=== PATIENT | female | born 1960 | race Caucasian/White ===

== ENCOUNTER 2017-02-16 10:58 | Emergency (ER) | payer BC ==
[~2017-02-16] VITALS: Ht 154.9 cm; Wt 85.7 kg
[~2017-02-16 10:58] MED LIST: ALBUTEROL SULF8.5 GM IH; BACTRIM,SEPT1 TABLET PO; BENTYL10 MG PO; CIPRO500 MG PO; EFFEXOR75 MG PO; LASIX20 MG PO; MECLIZINE HCL12.5 M2 PO; METRONIDAZOLE500 MG PO; MOTRIN800 MG PO; PERCOCET 5/31 TABLET PO; PROMETHAZINE HC25 M1 PO; PROMETHAZINE12.5 M1 PO; RITALIN10 MG PO; RITALIN5 MG PO; TAMIFLU75 MG PO; TORADOL10 MG PO; VENLAFAXINE H37.5 MG; XANAX0.5 MG PO; ZOFRAN ODT4 MG PO; ZOFRAN4 MG PO
[2017-02-16 13:32] LABS: HEMATOCRIT 40.1 % (36.0-46.0); MCH 29.8 PG (29.0-34.0); MCHC 33.2 G/DL (30.0-36.0); MCV 89.9 FL (83-99); MEAN PLAT.VOLUME 9.9 uM^3 (9.5-12.4); PLATELET COUNT 321 K/uL (156-360); RBC DIS.WIDTH-SD 39.4 % (39-53); RED BLOOD COUNT 4.46 M/uL (3.80-5.20); WHITE BLOOD COUNT 9.4 K/uL (4.1-10.2)
[2017-02-16 14:12] LABS: ANION GAP 9 MEQ/L (2-14); CHLORIDE 105 MEQ/L (99-109); POTASSIUM 4.2 MEQ/L (3.7-5.4); SAMPLE HEMOLYSIS CHECK 0; SAMPLE ICTERIC CHECK 0; SAMPLE LIPEMIA CHECK 0; SODIUM 141 MEQ/L (136-147)
[2017-02-16 14:14] LABS: TOTAL BILIRUBIN 0.3 MG/DL (0.0-1.0)
[2017-02-16 14:18] LABS: ALKALINE PHOSPHATASE 88 IU/L (3-129); GFR ESTIMATE (CALCULATED) > 59 mL/min/; GLUCOSE 100 mg/dL (70-99); LIPASE 12 U/L (1.0-51.0); UREA NITROGEN (BUN) 13 mg/dL (9-23)
[2017-02-16 14:20] LABS: ADD MIUA? NO; BILIRUBIN NEGATIVE; BLOOD NEGATIVE; COLOR YELLOW ((YELLOW)); GLUCOSE (STRIP) NEGATIVE; KETONES NEGATIVE; LEUKOCYTES NEGATIVE; NITRITE NEGATIVE; PROTEIN (STRIP) NEGATIVE; SPECIFIC GRAVITY 1.016 (1.000-1.030); UCUL ADDED? NO; UROBILINOGEN 0.2 MG/DL (0.2-1.0)
[2017-02-16 18:07] VITALS: BP 135/72
== END 2017-02-16 18:08 | disposition home or self-care (01) ==
LOC: EME 10:58 → RME 10:58
PROVIDERS: Physician Assistant
DX: R10.30 Lower abdominal pain, unspecified (principal); R10.10 Upper abdominal pain, unspecified; K58.8 Other irritable bowel syndrome; I10 Essential (primary) hypertension; Z88.8 Allergy status to other drugs, medicaments and biological substances; Z88.1 Allergy status to other antibiotic agents; Z88.5 Allergy status to narcotic agent; Z88.0 Allergy status to penicillin; Z91.041 Radiographic dye allergy status
CPT/HCPCS: 74176; 80053; 81003; 83690; 85027; 99281; 99284

== ENCOUNTER 2017-02-25 02:23 | Observation (INO) | payer BC ==
[~2017-02-25] VITALS: Ht 154.9 cm; Wt 85.3 kg
[2017-02-25 03:21] LABS: HEMATOCRIT 41.2 % (36.0-46.0); MCH 29.8 PG (29.0-34.0); MCHC 32.5 G/DL (30.0-36.0); MCV 91.6 FL (83-99); RBC DIS.WIDTH-SD 40.2 % (39-53); WHITE BLOOD COUNT 8.7 K/uL (4.1-10.2)
[2017-02-25 03:30] LABS: CHLORIDE 106 mEq/L (99-109); POTASSIUM 3.7 mEq/L (3.7-5.4); SODIUM 140 mEq/L (136-147)
[2017-02-25 03:32] LABS: GLUCOSE 108 mg/dL (70-99)
[2017-02-25 03:34] LABS: ANION GAP 11 MEQ/L (2-14)
[2017-02-25 03:35] LABS: TOTAL BILIRUBIN 0.3 mg/dL (0.0-1.0)
[2017-02-25 03:36] LABS: ALKALINE PHOSPHATASE 87 IU/L (3-129); GFR ESTIMATE (CALCULATED) > 59 mL/min/
[2017-02-25 03:37] LABS: UREA NITROGEN (BUN) 18 mg/dL (9-23)
[2017-02-25 03:39] LABS: DIRECT BILIRUBIN 0.1 mg/dL (0.0-0.3)
[2017-02-25 03:40] LABS: LIPASE 8 U/L (1.0-51.0)
[2017-02-25 03:41] LABS: TROP-I INTERPRETATION NEGATIVE; TROPONIN-I < 0.01 ng/mL (0.0-0.30)
[2017-02-25 04:39] LABS: SERUM ETHYL ALCOHOL < 10 mg/dL
[2017-02-25 05:16] LABS: MEAN PLAT.VOLUME 11.1 uM^3 (9.5-12.4); PLAT.SUFFICIENCY ADEQUATE; PLATELET CLUMPS PRESENT - PLATELET COUNT APPEARS ADQ.
[2017-02-25 07:24] VITALS: BP 122/74
[2017-02-25 08:36] LABS: ADD MIUA? YES; BILIRUBIN NEGATIVE; BLOOD SMALL; COLOR STRAW ((YELLOW)); GLUCOSE (STRIP) NEGATIVE; KETONES NEGATIVE; LEUKOCYTES NEGATIVE; NITRITE NEGATIVE; PROTEIN (STRIP) NEGATIVE; SPECIFIC GRAVITY 1.006 (1.000-1.030); UROBILINOGEN 0.2 MG/DL (0.2-1.0)
[2017-02-25 08:54] LABS: BACTERIA NONE SEEN /HPF; EPITHELIAL CELLS RARE /HPF; MUCUS NONE SEEN /LPF; UCUL ADDED? NO; WHITE BLOOD CELLS 0-5 /HPF (0-5)
[2017-02-25 09:20] LABS: TROP-I INTERPRETATION NEGATIVE; TROPONIN-I < 0.01 ng/mL (0.0-0.30)
[2017-02-25 10:00] LABS: AMPHETAMINES QUANT VALUE 0 NG/ML; BARBITUATES QUANT VALUE 0 NG/ML; BENZODIAZEPINES QUANT VALUE 0 NG/ML; BENZODIAZEPINES, URINE SCREEN Negative (200 ng/mL); MARIJUANA QUANT VALUE 0 NG/ML; OPIATES QUANTITATIVE VALUE 0 NG/ML; PHENCYCLIDINE QUANT VALUE 0 NG/ML
[2017-02-25] MEDS ORDERED: METHYLPHENIDATE5 MG PO (10:59)
[2017-02-25] MEDS ORDERED: RITALIN5 MG PO (11:00)
[2017-02-25] MEDS ORDERED: BENTYL10 MG PO (11:01)
[2017-02-25] MEDS ORDERED: ONDANSETRON HCL4 MG PO (11:01)
[2017-02-25 11:04] VITALS: BP 115/58
[2017-02-25] MEDS ORDERED: FIORICET,ESG1 TABLET PO (11:04)
[2017-02-25 14:48] LABS: TROP-I INTERPRETATION NEGATIVE; TROPONIN-I < 0.01 ng/mL (0.0-0.30)
== END 2017-02-25 17:10 | disposition home or self-care (01) ==
LOC: EME 02:23 → EDOF 04:09 → 5WEST 07:10
PROVIDERS: Emergency Medicine; Hospitalist; Physician Assistant Medical
DX: R07.89 Other chest pain (principal); R11.2 Nausea with vomiting, unspecified; R10.13 Epigastric pain; I10 Essential (primary) hypertension; F41.9 Anxiety disorder, unspecified
CPT/HCPCS: 71010; 74000; 80048; 80076; 80306 90; 81003; 83690; 84484; 85027; 93005; 99281; 99285; G0378; G0480; J2405; J7042; S0028

== ENCOUNTER 2017-05-16 16:53 | Emergency (ER) | payer BC ==
[~2017-05-16] VITALS: Ht 154.9 cm; Wt 81.1 kg
[~2017-05-16 16:53] MED LIST changes: +FIORICET,ESG1 TABLET PO; +METHYLPHENIDATE5 MG PO; +ONDANSETRON HCL4 MG PO
[2017-05-16 18:13] LABS: HEMATOCRIT 46.9 % (36.0-46.0); MCH 29.6 PG (29.0-34.0); MCHC 33.5 G/DL (30.0-36.0); MCV 88.3 FL (83-99); MEAN PLAT.VOLUME 9.5 uM^3 (9.5-12.4); PLATELET COUNT 309 K/uL (156-360); RBC DIS.WIDTH-CV 12.3 % (11.8-14.6); RBC DIS.WIDTH-SD 40.1 % (39-53); RED BLOOD COUNT 5.31 M/uL (3.80-5.20); WHITE BLOOD COUNT 15.3 K/uL (4.1-10.2)
[2017-05-16 18:33] LABS: CHLORIDE 106 mEq/L (99-109); SODIUM 142 mEq/L (136-147)
[2017-05-16 18:36] LABS: GLUCOSE 126 mg/dL (70-99)
[2017-05-16 18:37] LABS: ANION GAP 16 MEQ/L (2-14)
[2017-05-16 18:38] LABS: TOTAL BILIRUBIN 0.5 mg/dL (0.0-1.0)
[2017-05-16 18:39] LABS: ALKALINE PHOSPHATASE 113 IU/L (3-129); GFR ESTIMATE (CALCULATED) > 59 mL/min/
[2017-05-16 18:40] LABS: UREA NITROGEN (BUN) 15 mg/dL (9-23)
[2017-05-16 18:43] LABS: LIPASE 11 U/L (1.0-51.0)
[2017-05-16] MEDS ORDERED: BENTYL20 MG PO (19:45)
[2017-05-16 21:09] VITALS: BP 147/91
== END 2017-05-16 21:12 | disposition home or self-care (01) ==
LOC: EME 16:53
PROVIDERS: Emergency Medicine
DX: K58.0 Irritable bowel syndrome with diarrhea (principal); R11.2 Nausea with vomiting, unspecified; E86.0 Dehydration; I10 Essential (primary) hypertension
CPT/HCPCS: 80053; 81003; 83690; 85027; 99281; 99285; J1630; J2060; J2405; J7030

== ENCOUNTER 2017-06-21 22:25 | Emergency (ER) | payer OTHER ==
[~2017-06-21] VITALS: Ht 154.9 cm; Wt 80.8 kg
[~2017-06-21 22:25] MED LIST changes: +BENTYL20 MG PO
[2017-06-21 23:36] LABS: MCH 29.6 PG (29.0-34.0); MCV 87.2 FL (83-99); RBC DIS.WIDTH-CV 12.3 % (11.8-14.6); RED BLOOD COUNT 4.93 M/uL (3.80-5.20); WHITE BLOOD COUNT 17.5 K/uL (4.1-10.2)
[2017-06-22 00:29] LABS: CHLORIDE 107 mEq/L (99-109); POTASSIUM 4.1 mEq/L (3.7-5.4); SODIUM 141 mEq/L (136-147)
[2017-06-22 00:32] LABS: GLUCOSE 123 mg/dL (70-99)
[2017-06-22 00:33] LABS: ANION GAP 11 MEQ/L (2-14)
[2017-06-22 00:34] LABS: TOTAL BILIRUBIN 0.4 mg/dL (0.0-1.0)
[2017-06-22 00:35] LABS: ALKALINE PHOSPHATASE 102 IU/L (3-129); GFR ESTIMATE (CALCULATED) > 59 mL/min/
[2017-06-22 00:36] LABS: UREA NITROGEN (BUN) 21 mg/dL (9-23)
[2017-06-22 00:39] LABS: LIPASE 7 U/L (1.0-51.0)
[2017-06-22 01:07] LABS: PLAT.SUFFICIENCY ADEQUATE
[2017-06-22 01:08] LABS: PLATELET CLUMPS PRESENT
[2017-06-22] MEDS ORDERED: PRILOSEC20 MG PO (03:23)
[2017-06-22] MEDS ORDERED: ZOFRAN4 MG PO (03:23)
[2017-06-22 03:45] VITALS: BP 129/77
== END 2017-06-22 03:47 | disposition home or self-care (01) ==
LOC: EME 22:25
PROVIDERS: Physician Assistant
DX: R10.10 Upper abdominal pain, unspecified (principal); R11.2 Nausea with vomiting, unspecified; I10 Essential (primary) hypertension; Z87.19 Personal history of other diseases of the digestive system; Z88.1 Allergy status to other antibiotic agents; Z91.041 Radiographic dye allergy status; Z88.0 Allergy status to penicillin; Z87.891 Personal history of nicotine dependence
CPT/HCPCS: 74020; 80053; 83605; 83690; 85027; 99281; 99285; J2060; J2405; J7030

== ENCOUNTER 2017-11-16 22:52 | Emergency (ER) | payer OTHER ==
[~2017-11-16] VITALS: Ht 154.9 cm; Wt 77.7 kg
[~2017-11-16 22:52] MED LIST changes: +PRILOSEC20 MG PO
[2017-11-16 23:24] LABS: BASOPHIL (%) 0.2 % (0-1); EOSINOPHIL (%) 1.3 % (0-5); EOSINOPHIL COUNT 0.2 K/uL (0-0.3); HEMATOCRIT 42.3 % (36.0-46.0); HEMOGLOBIN 14.6 G/DL (11.9-15.5); IMMATURE GRANULOCYTE (%) 0.4 % (0.0-0.7); LYMPHOCYTE (%) 10.9 % (15-42); LYMPHOCYTE COUNT 1.6 K/uL (1.0-2.8); MCH 29.9 PG (29.0-34.0); MCHC 34.5 G/DL (30.0-36.0); MCV 86.7 FL (83-99); MONOCYTE (%) 4.2 % (3-12); MONOCYTE COUNT 0.6 K/uL (0-0.8); NEUTROPHIL COUNT 11.8 K/uL (1.8-6.4); PLATELET COUNT 318 K/uL (156-360); RED BLOOD COUNT 4.88 M/uL (3.80-5.20); WHITE BLOOD COUNT 14.2 K/uL (4.1-10.2)
[2017-11-16 23:41] LABS: ALBUMIN 4.5 g/dL (3.2-4.8); CHLORIDE 105 mEq/L (99-109); POTASSIUM 3.6 mEq/L (3.7-5.4); SODIUM 142 mEq/L (136-147)
[2017-11-16 23:42] LABS: MAGNESIUM 1.9 mg/dL (1.3-2.7)
[2017-11-16 23:44] LABS: GLUCOSE 138 mg/dL (70-99); TOTAL PROTEIN 7.9 g/dL (6.4-8.3)
[2017-11-16 23:46] LABS: TOTAL BILIRUBIN 0.7 mg/dL (0.0-1.0)
[2017-11-16 23:47] LABS: ALKALINE PHOSPHATASE 118 IU/L (3-129); CREATININE 0.9 mg/dL (0.6-1.3); GFR ESTIMATE (CALCULATED) > 59 mL/min/
[2017-11-16 23:48] LABS: UREA NITROGEN (BUN) 18 mg/dL (9-23)
[2017-11-16 23:49] LABS: AST (GOT) 17 IU/L (2-34)
[2017-11-16 23:50] LABS: ALT (GPT) 28 IU/L (3-49)
[2017-11-16 23:56] LABS: TROP-I INTERPRETATION NEGATIVE; TROPONIN-I < 0.01 ng/mL (0.0-0.30)
[2017-11-17] MEDS ORDERED: ZOFRAN ODT4 MG PO (01:39)
[2017-11-17 02:22] VITALS: BP 142/74
== END 2017-11-17 02:43 | disposition home or self-care (01) ==
LOC: EME 22:52
PROVIDERS: Emergency Medicine
DX: K52.9 Noninfective gastroenteritis and colitis, unspecified (principal); F41.9 Anxiety disorder, unspecified; I34.1 Nonrheumatic mitral (valve) prolapse; Z87.891 Personal history of nicotine dependence; Z88.1 Allergy status to other antibiotic agents; Z88.0 Allergy status to penicillin; Z88.8 Allergy status to other drugs, medicaments and biological substances
CPT/HCPCS: 80053; 81003; 83735; 84484; 85025; 93005; 99281; 99284; J1885; J2060; J2405

== ENCOUNTER 2018-03-22 17:38 | Observation (INO) | payer OTHER ==
[~2018-03-22] VITALS: Ht 154.9 cm; Wt 80.8 kg
[2018-03-22 18:51] LABS: CHLORIDE 106 mEq/L (99-109); HEMOGLOBIN 13.8 G/DL (11.9-15.5); MCH 30.7 PG (29.0-34.0); MCHC 34.5 G/DL (30.0-36.0); MCV 89.1 FL (83-99); PLATELET COUNT 287 K/uL (156-360); POTASSIUM 3.2 mEq/L (3.7-5.4); RBC DIS.WIDTH-CV 12.3 % (11.8-14.6); RED BLOOD COUNT 4.49 M/uL (3.80-5.20); SODIUM 143 mEq/L (136-147)
[2018-03-22 18:53] LABS: GLUCOSE 105 mg/dL (70-99)
[2018-03-22 18:57] LABS: CREATININE 0.8 mg/dL (0.6-1.3); GFR ESTIMATE (CALCULATED) > 59 mL/min/
[2018-03-22 18:58] LABS: UREA NITROGEN (BUN) 12 mg/dL (9-23)
[2018-03-22 19:01] LABS: TROP-I INTERPRETATION NEGATIVE; TROPONIN-I < 0.01 ng/mL (0.0-0.30)
[2018-03-22 19:11] LABS: ALBUMIN 4.5 g/dL (3.2-4.8)
[2018-03-22 19:14] LABS: TOTAL PROTEIN 7.3 g/dL (6.4-8.3)
[2018-03-22 19:16] LABS: TOTAL BILIRUBIN 0.5 mg/dL (0.0-1.0)
[2018-03-22 19:17] LABS: ALKALINE PHOSPHATASE 133 IU/L (3-129)
[2018-03-22 19:19] LABS: AST (GOT) 18 IU/L (2-34); DIRECT BILIRUBIN 0.2 mg/dL (0.0-0.3)
[2018-03-22 19:20] LABS: ALT (GPT) 23 IU/L (3-49); LIPASE 6 U/L (1.0-51.0)
[2018-03-22] MEDS ORDERED: [UNRECOGNIZED DRUG - OTHER] PO (21:21)
[2018-03-22 23:20] VITALS: BP 164/80
[2018-03-23 00:48] LABS: TROP-I INTERPRETATION NEGATIVE; TROPONIN-I < 0.01 ng/mL (0.0-0.30)
[2018-03-23 03:26] VITALS: BP 134/65
[2018-03-23 05:35] LABS: MCH 29.3 PG (29.0-34.0); MCHC 32.5 G/DL (30.0-36.0); PLATELET COUNT 257 K/uL (156-360); RBC DIS.WIDTH-CV 12.3 % (11.8-14.6); RBC DIS.WIDTH-SD 40.2 % (39-53); WHITE BLOOD COUNT 7.5 K/uL (4.1-10.2)
[2018-03-23 05:38] LABS: HEMOGLOBIN 11.7 G/DL (11.9-15.5)
[2018-03-23 05:41] LABS: TROP-I INTERPRETATION NEGATIVE; TROPONIN-I < 0.01 ng/mL (0.0-0.30)
[2018-03-23 05:52] LABS: CHLORIDE 111 MEQ/L (99-109); CREATININE 0.7 MG/DL (0.6-1.3); GFR ESTIMATE (CALCULATED) > 59 mL/min/; GLUCOSE 89 mg/dL (70-99); SODIUM 143 MEQ/L (136-147); UREA NITROGEN (BUN) 11 mg/dL (9-23)
[2018-03-23 06:03] LABS: POTASSIUM 3.9 MEQ/L (3.7-5.4)
[2018-03-23 07:22] VITALS: BP 118/57
[2018-03-23 12:19] VITALS: BP 166/79
[2018-03-23] MEDS ORDERED: LOPRESSOR25 MG PO (14:25)
[2018-03-23] MEDS ORDERED: ASPIR-LOW81 MG PO (14:25)
[2018-03-23] MEDS ORDERED: OMEPRAZOLE40 M1 PO (14:30)
[2018-03-23 16:46] VITALS: BP 144/76
[2018-03-23 18:49] VITALS: BP 177/83
== END 2018-03-23 21:14 | disposition home or self-care (01) ==
LOC: EME 17:38 → 4SOUTH 21:19 → EDOF 21:19 → ENRESERV 21:20 → 4SOUTH 23:16
PROVIDERS: Hospitalist; Nurse Practitioner Acute Care
DX: R07.9 Chest pain, unspecified (principal); I10 Essential (primary) hypertension; K58.0 Irritable bowel syndrome with diarrhea; G89.29 Other chronic pain; M79.602 Pain in left arm; E87.6 Hypokalemia; G47.33 Obstructive sleep apnea (adult) (pediatric); E66.9 Obesity, unspecified; Z68.33 Body mass index [BMI] 33.0-33.9, adult; I34.1 Nonrheumatic mitral (valve) prolapse; Z85.820 Personal history of malignant melanoma of skin; Z87.11 Personal history of peptic ulcer disease; Z90.79 Acquired absence of other genital organ(s); Z90.721 Acquired absence of ovaries, unilateral; Z82.49 Family history of ischemic heart disease and other diseases of the circulatory system; Z83.3 Family history of diabetes mellitus; Z91.041 Radiographic dye allergy status; Z88.0 Allergy status to penicillin; Z88.1 Allergy status to other antibiotic agents; Z88.5 Allergy status to narcotic agent; Z88.8 Allergy status to other drugs, medicaments and biological substances; Z87.891 Personal history of nicotine dependence
CPT/HCPCS: 71046; 73030; 74176; 80048; 80076; 83690; 84484; 85027; 93005; 99281; 99285; G0378; J1650; J7030; S0028

== ENCOUNTER 2018-05-29 13:32 | Emergency (ER) | payer OTHER ==
[~2018-05-29] VITALS: Ht 154.9 cm; Wt 79.1 kg
[~2018-05-29 13:32] MED LIST changes: +ASPIR-LOW81 MG PO; +LOPRESSOR25 MG PO; +OMEPRAZOLE40 M1 PO; +[UNRECOGNIZED DRUG - OTHER] PO
[2018-05-29 15:40] LABS: HEMATOCRIT 39.8 % (36.0-46.0); HEMOGLOBIN 13.7 G/DL (11.9-15.5); MCH 30.8 PG (29.0-34.0); MCHC 34.4 G/DL (30.0-36.0); MCV 89.4 FL (83-99); PLATELET COUNT 311 K/uL (156-360); RBC DIS.WIDTH-CV 11.9 % (11.8-14.6); RBC DIS.WIDTH-SD 38.8 % (39-53); RED BLOOD COUNT 4.45 M/uL (3.80-5.20)
[2018-05-29 15:49] LABS: ALBUMIN 4.3 g/dL (3.2-4.8); CHLORIDE 107 mEq/L (99-109); POTASSIUM 3.8 mEq/L (3.7-5.4); SODIUM 142 mEq/L (136-147)
[2018-05-29 15:51] LABS: GLUCOSE 99 mg/dL (70-99); TOTAL PROTEIN 7.3 g/dL (6.4-8.3)
[2018-05-29 15:53] LABS: TOTAL BILIRUBIN 0.5 mg/dL (0.0-1.0)
[2018-05-29 15:55] LABS: ALKALINE PHOSPHATASE 112 IU/L (3-129); CREATININE 0.8 mg/dL (0.6-1.3); GFR ESTIMATE (CALCULATED) > 59 mL/min/
[2018-05-29 15:56] LABS: UREA NITROGEN (BUN) 18 mg/dL (9-23)
[2018-05-29 15:57] LABS: AST (GOT) 15 IU/L (2-34)
[2018-05-29 15:58] LABS: ALT (GPT) 18 IU/L (3-49); LIPASE 7 U/L (1.0-51.0)
[2018-05-29 16:42] VITALS: BP 143/76
== END 2018-05-29 16:45 | disposition home or self-care (01) ==
LOC: EME 13:32
PROVIDERS: Emergency Medicine
DX: R10.9 Unspecified abdominal pain (principal); K21.9 Gastro-esophageal reflux disease without esophagitis; R53.82 Chronic fatigue, unspecified; K58.9 Irritable bowel syndrome, unspecified; G43.909 Migraine, unspecified, not intractable, without status migrainosus; I34.1 Nonrheumatic mitral (valve) prolapse; F32.9 Major depressive disorder, single episode, unspecified; F41.9 Anxiety disorder, unspecified; Z87.891 Personal history of nicotine dependence; Z87.442 Personal history of urinary calculi; Z85.9 Personal history of malignant neoplasm, unspecified; Z90.49 Acquired absence of other specified parts of digestive tract; Z88.0 Allergy status to penicillin; Z88.1 Allergy status to other antibiotic agents; Z88.8 Allergy status to other drugs, medicaments and biological substances; Z91.041 Radiographic dye allergy status
CPT/HCPCS: 80053; 83690; 85027; 93005; 99281; 99285; J1885; J2405; J7030

== ENCOUNTER 2018-07-20 08:26 | Emergency (ER) | payer OTHER ==
[~2018-07-20] VITALS: Ht 154.9 cm; Wt 80.8 kg
[2018-07-20] MEDS ORDERED: MOTRIN600 MG PO (09:12)
[2018-07-20] MEDS ORDERED: FLEXERIL10 MG PO (09:12)
[2018-07-20 09:28] VITALS: BP 141/82
== END 2018-07-20 09:31 | disposition home or self-care (01) ==
LOC: EME 08:26
DX: S16.1XXA Strain of muscle, fascia and tendon at neck level, initial encounter (principal); V47.0XXA Car driver injured in collision with fixed or stationary object in nontraffic accident, initial encounter; K21.9 Gastro-esophageal reflux disease without esophagitis; R53.82 Chronic fatigue, unspecified; I34.1 Nonrheumatic mitral (valve) prolapse; K58.9 Irritable bowel syndrome, unspecified; F41.9 Anxiety disorder, unspecified; F32.9 Major depressive disorder, single episode, unspecified; Z87.442 Personal history of urinary calculi; Z90.49 Acquired absence of other specified parts of digestive tract; Z87.891 Personal history of nicotine dependence; Z88.0 Allergy status to penicillin; Z88.1 Allergy status to other antibiotic agents; Z88.5 Allergy status to narcotic agent; Z88.8 Allergy status to other drugs, medicaments and biological substances; Z91.041 Radiographic dye allergy status
CPT/HCPCS: 99281; 99284; J1885